=== PATIENT | female | born 1990 | race Caucasian/White ===

== ENCOUNTER 2019-06-08 10:10 | Emergency (ER) | payer MEDICAID, OTHER ==
[~2019-06-08] VITALS: Ht 165.1 cm; Wt 63.5 kg
[2019-06-08 10:32] VITALS: BP 130/80
[2019-06-08] MEDS ORDERED: cefTRIAXone SOD 1,000 MG VL IM ONE (10:45)
== END 2019-06-08 10:58 | disposition home or self-care (01) ==
LOC: ER 10:10
DX: L03.114 Cellulitis of left upper limb (principal)
CPT/HCPCS: 96372; 99283; J0696

== ENCOUNTER 2019-10-10 21:41 | Emergency (ER) | payer MEDICAID ==
[~2019-10-10] VITALS: Ht 165.1 cm; Wt 65.8 kg
[2019-10-11 02:10] VITALS: BP 111/71
[2019-10-11] MEDS ORDERED: KETOROLAC TROMETH 60MG/2ML VIAL IM ONE (02:15)
[2019-10-11] MEDS ORDERED: cefTRIAXone SOD 1,000 MG VL IM ONE (04:00)
[2019-10-11] MEDS ORDERED: TETANUS-DIPTH-ACEL PERTUSSIS 0.5ML SYR Tdap IM ONE (04:15)
== END 2019-10-11 04:28 | disposition home or self-care (01) ==
LOC: ER 21:41
DX: L03.113 Cellulitis of right upper limb (principal); L02.511 Cutaneous abscess of right hand
CPT/HCPCS: 90471; 90715; 96372; 99284; J0696; J1885

== ENCOUNTER 2020-05-31 08:06 | Emergency (ER) | payer MEDICAID ==
[~2020-05-31] VITALS: Ht 165.1 cm; Wt 65.8 kg
[2020-05-31 08:23] VITALS: BP 139/74
[2020-05-31] MEDS ORDERED: cefTRIAXone SOD 1,000 MG VL IM ONE (09:45)
== END 2020-05-31 09:55 | disposition home or self-care (01) ==
LOC: ER 08:06
DX: L03.114 Cellulitis of left upper limb (principal)
CPT/HCPCS: 81025

== ENCOUNTER 2020-12-25 21:19 | Emergency (ER) | payer MEDICAID ==
[~2020-12-25] VITALS: Ht 165.1 cm; Wt 65.8 kg
[2020-12-26 05:41] VITALS: BP 119/68
== END 2020-12-26 05:56 | disposition home or self-care (01) ==
LOC: ER 21:19
DX: R20.0 Anesthesia of skin (principal); M79.642 Pain in left hand; M79.641 Pain in right hand; M79.672 Pain in left foot; M79.671 Pain in right foot; F17.210 Nicotine dependence, cigarettes, uncomplicated

== ENCOUNTER 2021-02-04 04:54 | Emergency (ER) | payer OTHER ==
[~2021-02-04] VITALS: Ht 165.1 cm; Wt 67.1 kg
[2021-02-04] MEDS ORDERED: KETOROLAC TROMETH 60MG/2ML VIAL IM ONE (05:45)
[2021-02-04 06:13] VITALS: BP 133/84
== END 2021-02-04 06:32 | disposition home or self-care (01) ==
LOC: ER 04:54
DX: S46.812A Strain of other muscles, fascia and tendons at shoulder and upper arm level, left arm, initial encounter (principal); F17.210 Nicotine dependence, cigarettes, uncomplicated; X50.1XXA Overexertion from prolonged static or awkward postures, initial encounter; Y93.89 Activity, other specified; Y92.89 Other specified places as the place of occurrence of the external cause; Y99.8 Other external cause status
CPT/HCPCS: 96372; 99283; J1885